=== PATIENT | male | born 1950 | race Caucasian/White ===

== ENCOUNTER 2023-05-27 09:09 | Inpatient (IN) | payer OTHER ==
[~2023-05-27] VITALS: Ht 167.6 cm; Wt 90.7 kg
[2023-05-27] MEDS ORDERED: GLIPIZIDE XL5 MG PO (09:32)
[2023-05-27] MEDS ORDERED: TERAZOSIN HCL5 MG PO (09:32)
[2023-05-27] MEDS ORDERED: HYDROCHLOROTHIA25 MG PO (09:32)
[2023-05-27] MEDS ORDERED: EZALLOR SPRINKL20 MG PO (09:33)
[2023-05-27] MEDS ORDERED: JANTOVEN2.5 MG PO (09:33)
[2023-05-27] MEDS ORDERED: GLUMETZA1000 MG PO (09:33)
[2023-05-27] MEDS ORDERED: TOPROL XL50 M1 PO (09:33)
[2023-05-27] MEDS ORDERED: ENALAPRIL MALE2.5 MG PO (09:34)
[2023-06-08] MEDS ORDERED: METRONIDAZOLE500 MG PO (10:43)
[2023-06-08] MEDS ORDERED: B Complex PO (10:43)
[2023-06-08] MEDS ORDERED: THIAMINE HCL100 MG PO (10:43)
[2023-06-08] MEDS ORDERED: TOPROL XL50 M1 PO (10:43)
[2023-06-08] MEDS ORDERED: Neurin-Sl Tablet Sl SL (10:43)
[2023-06-08] MEDS ORDERED: GABAPENTIN300 MG PO (10:43)
[2023-06-08] MEDS ORDERED: TERAZOSIN HCL5 MG PO (10:43)
[2023-06-08] MEDS ORDERED: LEVOFLOXACIN750 MG PO (10:43)
[2023-06-08] MEDS ORDERED: WARFARIN SODIU2.5 MG PO (10:43)
[2023-06-08] MEDS ORDERED: INTESTINEX680 M2 PO (10:43)
[2023-06-08] MEDS ORDERED: INTEGRA PLUS C1 EACH PO (10:43)
== END 2023-06-08 11:40 | disposition home or self-care (01) | DRG 504 ==
LOC: ER 09:09 → MEDI 19:33
PROVIDERS: Emergency Medicine; General Practice; Specialist; ADMIT Internal Medicine; ATTEND Internal Medicine
PROC: BQ3FZZZ Magnetic Resonance Imaging (MRI) of Left Lower Leg (ICD-10-PCS; 2023-05-27)
PROC: B44HZZZ Ultrasonography of Bilateral Lower Extremity Arteries (ICD-10-PCS; 2023-05-29)
PROC: 0Y6S0Z1 Detachment at Left 2nd Toe, High, Open Approach (ICD-10-PCS; principal; 2023-06-02 13:00)
DX: M86.172 Other acute osteomyelitis, left ankle and foot (principal); L03.116 Cellulitis of left lower limb; L97.528 Non-pressure chronic ulcer of other part of left foot with other specified severity; N17.8 Other acute kidney failure; E11.621 Type 2 diabetes mellitus with foot ulcer; B96.29 Other Escherichia coli [E. coli] as the cause of diseases classified elsewhere; E66.9 Obesity, unspecified; Z68.32 Body mass index [BMI] 32.0-32.9, adult; E11.22 Type 2 diabetes mellitus with diabetic chronic kidney disease; I12.9 Hypertensive chronic kidney disease with stage 1 through stage 4 chronic kidney disease, or unspecified chronic kidney disease; E78.49 Other hyperlipidemia; Z79.4 Long term (current) use of insulin; E11.69 Type 2 diabetes mellitus with other specified complication

== ENCOUNTER 2025-07-07 09:08 | Inpatient (IN) | payer OTHER ==
[~2025-07-07] VITALS: Ht 170.2 cm; Wt 86.2 kg
[~2025-07-07 09:08] MED LIST: B Complex PO; ENALAPRIL MALE2.5 MG PO; EZALLOR SPRINKL20 MG PO; GABAPENTIN300 MG PO; GLIPIZIDE XL5 MG PO; GLUMETZA1000 MG PO; HYDROCHLOROTHIA25 MG PO; INTEGRA PLUS C1 EACH PO; INTESTINEX680 M2 PO; JANTOVEN2.5 MG PO; LEVOFLOXACIN750 MG PO; METRONIDAZOLE500 MG PO; Neurin-Sl Tablet Sl SL; TERAZOSIN HCL5 MG PO; THIAMINE HCL100 MG PO; TOPROL XL50 M1 PO; WARFARIN SODIU2.5 MG PO
[2025-07-07] MEDS ORDERED: PANTOPRAZOLE SODIUM 40 MG/VIAL VIAL IV PUSH ONE (12:30)
[2025-07-07] MEDS ORDERED: VANCOMYCIN HCL 1,000 MG VIAL IV ONE (12:30)
[2025-07-07] MEDS ORDERED: 0.9 % SODIUM CHLORIDE 1,000 ML IV ONE (12:30)
[2025-07-07] MEDS ORDERED: VANCOMYCIN HCL 1,000 MG VIAL ONE ×2 (12:35→19:41)
[2025-07-07 13:11] LABS: BASO % 0.9 % (0.1-1.2); EOS # 0.15 (0.04-0.54); EOS % 2.6 % (0.7-7.0); LYMPH # 1.14 (1.18-3.74); LYMPH % 19.8 % (19.3-53.1); MEAN PLATELET VOLUME 9.70 fl (9.4-12.4); MONO # 0.65 (0.24-0.82); MONO % 11.3 % (4.7-12.5); NEUT # 3.78 (1.56-6.13); NEUT % 65.4 % (34.0-71.1); RED CELL DISTRIBUTION WIDTH 13.4 % (11.6-14.4)
[2025-07-07 13:15] LABS: ERYTHROCYTE SEDIMENTATION RATE 44 mm/hr (0-20)
[2025-07-07 13:40] LABS: BUN CREA RATIO 18.0 (7.0-25.0); CREATININE SERUM 1.91 mg/dL (0.70-1.30); GFR 34.34; GLUCOSE FASTING 74.0 mg/dL (65-100); INR 1.11; OSMOLALITY SERUM 290.0 MOSM/KG (275-295)
[2025-07-07 17:52] LABS: URINE APPEARANCE Clear; URINE BILIRRUBIN Negative (NEGATIVE); URINE BLOOD Negative; URINE COLOR Yellow; URINE GLUCOSE Negative (NEGATIVE); URINE KETONE Negative (NEGATIVE); URINE LEUKOCYTE Negative; URINE NITRATE Negative; URINE PROTEIN Negative (NEGATIVE); URINE UROBILINOGEN 0.2 E.U./dl
[2025-07-07 17:56] LABS: URINE BACTERIA 25.1 uL (0.0-1933); URINE EPITHELIAL CELLS 1.5 uL (0.0-38.8)
[2025-07-07] MEDS ORDERED: ATORVASTATIN CALCIUM 20 MG TABLET PO SCH (18:04)
[2025-07-07] MEDS ORDERED: HYDROCHLOROTHIAZIDE 25 MG TABLET PO SCH (18:05)
[2025-07-07] MEDS ORDERED: METOPROLOL TARTRATE 50 MG TABLET PO SCH (18:08)
[2025-07-07 18:09] LABS: URINE CAST 0.00 uL (0.0-1.40); URINE RBC 0.2 uL (0.0-20.8); URINE WBC 1.5 uL (0.0-23.2)
[2025-07-07] MEDS ORDERED: ENOXAPARIN SODIUM 30 MG/0.3 ML SYRINGE SUBCUTANEO SCH (18:13)
[2025-07-07] MEDS ORDERED: ACETAMINOPHEN 325 MG TABLET PO PRN (18:15)
[2025-07-07] MEDS ORDERED: 0.9 % SODIUM CHLORIDE 1,000 ML IV SCH (18:15)
[2025-07-07] MEDS ORDERED: VANCOMYCIN HCL 1,000 MG VIAL IV SCH (18:15)
[2025-07-07] MEDS ORDERED: DEXTROSE 50 % IN WATER 0.5 G/ML DISP.SYRIN IV PRN (18:15)
[2025-07-07] MEDS ORDERED: INSULIN LISPRO 1,000 UNIT/10 ML UNITS SUBCUTANEO PRN (18:15)
[2025-07-07 20:19] VITALS: BP 130/82; O2SAT 96
[2025-07-08 02:26] VITALS: BP 124/59
[2025-07-08 05:37] LABS: INR 1.09
[2025-07-08 05:43] LABS: ALT/SGPT 19.0 U/L (12-78); AST/SGOT 20.0 U/L (15-37); BILIRUBIN TOTAL 0.71 mg/dL (0.3-1.2); BUN CREA RATIO 20.0 (7.0-25.0); CREATININE SERUM 1.63 mg/dL (0.70-1.30); GFR 41.23; GLOBULINA 3.2 G/DL (2.4-3.5); GLUCOSE FASTING 98.0 mg/dL (65-100); OSMOLALITY SERUM 296.0 MOSM/KG (275-295)
[2025-07-08] MEDS ORDERED: MEROPENEM 500 MG/VIAL VIAL IV SCH ×2 (08:13→21:00)
[2025-07-08] MEDS ORDERED: RINGERS SOLUTION,LACTATED 1,000 ML IV SCH (08:15)
[2025-07-08 08:35] VITALS: BP 163/85
[2025-07-08] MEDS ORDERED: PANTOPRAZOLE SODIUM 40 MG/VIAL VIAL IV PUSH SCH (09:00)
[2025-07-08 19:09] VITALS: BP 177/72; O2SAT 98
[2025-07-09 02:27] VITALS: BP 172/79; O2SAT 96
[2025-07-09 06:14] LABS: BASO % 0.9 % (0.1-1.2); EOS # 0.24 (0.04-0.54); EOS % 3.7 % (0.7-7.0); LYMPH # 1.49 (1.18-3.74); LYMPH % 22.9 % (19.3-53.1); MEAN PLATELET VOLUME 10.00 fl (9.4-12.4); MONO # 0.75 (0.24-0.82); MONO % 11.5 % (4.7-12.5); NEUT # 3.98 (1.56-6.13); NEUT % 61.0 % (34.0-71.1); RED CELL DISTRIBUTION WIDTH 13.2 % (11.6-14.4)
[2025-07-09 07:01] LABS: ERYTHROCYTE SEDIMENTATION RATE 54 mm/hr (0-20)
[2025-07-09 07:03] LABS: ALT/SGPT 23.0 U/L (12-78); AST/SGOT 27.0 U/L (15-37); BILIRUBIN TOTAL 0.71 mg/dL (0.3-1.2); BUN CREA RATIO 22.0 (7.0-25.0); CREATININE SERUM 1.48 mg/dL (0.70-1.30); GFR 46.09; GLOBULINA 3.2 G/DL (2.4-3.5); GLUCOSE FASTING 112.0 mg/dL (65-100); OSMOLALITY SERUM 295.0 MOSM/KG (275-295)
[2025-07-09] MEDS ORDERED: VANCOMYCIN HCL 5 MG/ML REDILUIDO IV SCH ×2 (09:00→18:00)
[2025-07-09 09:22] VITALS: BP 175/72; O2SAT 96
[2025-07-09 19:03] VITALS: BP 160/85
[2025-07-10 00:35] VITALS: BP 150/80
[2025-07-10 08:56] VITALS: BP 188/77; O2SAT 98
[2025-07-10] MEDS ORDERED: LINEZOLID600 MG PO (10:43)
== END 2025-07-10 12:14 | disposition home or self-care (01) | DRG 603 ==
LOC: ER 09:08 → MEDI 18:39
PROVIDERS: General Practice; Internal Medicine Infectious Disease; ADMIT Internal Medicine; ATTEND Internal Medicine
PROC: BQ3MZZZ Magnetic Resonance Imaging (MRI) of Left Foot (ICD-10-PCS; 2025-07-07)
PROC: 0HDMXZZ Extraction of Right Foot Skin, External Approach (ICD-10-PCS; principal; 2025-07-08)
PROC: B44HZZZ Ultrasonography of Bilateral Lower Extremity Arteries (ICD-10-PCS; 2025-07-08)
DX: L03.116 Cellulitis of left lower limb (principal); M86.9 Osteomyelitis, unspecified; N17.9 Acute kidney failure, unspecified; L97.529 Non-pressure chronic ulcer of other part of left foot with unspecified severity; E11.9 Type 2 diabetes mellitus without complications; Z79.4 Long term (current) use of insulin; I10 Essential (primary) hypertension; E78.5 Hyperlipidemia, unspecified; S98.132A Complete traumatic amputation of one left lesser toe, initial encounter